=== PATIENT | female | born 1990 ===

== ENCOUNTER 2022-07-11 05:45 | Inpatient (IN) | payer MEDICAID ==
[2022-07-10 15:13] LABS: Hematocrit 35.9 % (30.3-42.9); Hemoglobin 11.9 gm/dl (10.1-14.3); Mean Corpuscular HGB Conc 33 % (30-34); Mean Corpuscular Volume 88 fl (79-97); Platelet Count 265 K/mm3 (140-440); Red Blood Count 4.08 M/mm3 (3.65-5.03); Red Cell Distribution Width 13.9 % (13.2-15.2)
--- NOTE | 2022-07-10 21:45 | History and Physical Report ---
History of Present Illness Date of examination: 07/10/22 History of present illness: Patient admitted for repeat section. Patient informed the risks of the surgery include bleeding possibly bleeding heavy enough to require blood transfusion, infection possible damage to bowel bladder ureter. Patient understands that due to her previous surgery she is an increased risks of adjacent organ damage. Patient's questions answered. Patient understands and desires to proceed. Menstrual History Regularity: irregular Menses every: 28 days Duration: 4 LMP: 08/28/2021 LMP reliability: unknown LMP character: normal test type: urine test Date: 01/30/2022 BC at conception: none Planned ? no Past History : 5 Term Births: 2 Premature Births: 0 Living Children: 2 Para: 2 Mult. Births: 0 Prev : 2 Aborta: 2 Elect. Ab: 0 Spont. Ab: 2 Ectopics: 0 # 1 Delivery date: Weeks Gestation: 41 labor: no Delivery type: Anesthesia type: epidural Infant Sex: Female Name: arcelia Comments: CS for arrest of dilatation # 2 Delivery date: 2016 Weeks Gestation: 40 labor: no Delivery type: Anesthesia type: epidural Sex: Male Comments: RCS # 3 Weeks Gestation: 8 Delivery type: SAB Comments: no medications or procedures # 4 Weeks Gestation: 8 Delivery type: SAB Comments: no medications or procedures Past Medical History: Negative Past Medical History Past Surgical History: 2016 Family History Summary: First Degree Blood Relative - Has No Known Family History - Entered On: 02/05/2022 Social History: Smoking History: Patient has never smoked. 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 % Family History Risk Factors: Family History of OH in 1 Female Relative Age < 65: no Family History of OH in 1 Male Relative Age < 55: no No Dietary Counseling Reason: pn yes Alcohol Use: no Drug Use: no Past Medical History Anesthesia Complications: negative Anemia: negative Autoimmune Disorder: negative Bleeding Disorder: negative Blood Transfusions: negative Breast Disease: negative Diabetes: negative Heart Disease: negative Hypertension: negative Hepatitis/Liver Disease: negative Kidney Disease/UTI: negative Neurologic/Epilepsy/Migraines: negative Phlebitis/Varicosities: negative Psychiatric: negative Pulmonary Disease/Asthma: negative Thyroid Disease: negative 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 Infection History Hx of STD: none HIV Risk Eval: no Hepatitis B Risk Eval: low risk Personal hx. of genital herpes: no Partner hx. of genital herpes: no Rash, Viral, or Febrile illness since last LMP? no Varicella/Chicken Pox Status: Previous Disease TB Risk: no Genetic History Congenital Heart Defect: Mom: no Dad: no Pinky Disease: Mom: no Dad: no Thalassemia Mom: no Dad: no Neural Tube Defect Mom: no Dad: no Down's Syndrome Mom: no Dad: no Umer-Sachs Mom: no Dad: no Sickle Cell Disease/Trait Mom: no Dad: no Hemophilia Mom: no Dad: no Muscular Dystrophy Mom: no Dad: no Cystic Fibrosis Mom: no Dad: no [place] Chorea Mom: no Dad: no Mental Retardation Mom: no Dad: no Fragile X Mom: no Dad: no Other Genetic/Chromosomal Disorder Mom: no Dad: no Child w/other defect Mom: no Dad: no Enviromental Exposures Enviromental Exposures Reviewed Xray Exposure: no Medication, drug, or alcohol use since LMP: no Chemical/Other Exposure: no Exposure to Cat Liter: no Hx of Parvovirus (Fifth Disease): no Occupational Exposure to Children: none Current Allergies (reviewed today): No known allergies Past History Past Medical History: other (SEE HPI) Past Surgical History: section, other (SEE HPI) EMS DRIVER History: other (SEE HPI) Family/Genetic History: other (SEE HPI) Social history: full code, other (SEE HPI) - Obstetrical History Expected Date of Delivery: 07/18/22 Actual Gestation: 39 Week(s) 0 Day(s) : 5 Para: 2 Hx # Term Pregnancies: 2 Number of Pregnancies: 0 Spontaneous Abortions: 2 Induced : 0 Number of Living Children: 2 Medications and Allergies Allergies Allergy/AdvReac Type Severity Reaction Status Date / Time morphine AdvReac Nausea Verified 07/04/22 17:09 Home Medications Medication Instructions Recorded Confirmed Last Taken Type No Known Home Medications [No 07/04/22 07/04/22 Unknown History Reported Home Medications] Review of Systems All systems: negative - Physical Exam Breasts: Positive: deferred Cardiovascular: Regular rate Lungs: Positive: Normal air movement Abdomen: Positive: normal appearance, soft, other (Obese) Genitourinary (Female): Positive: normal external genitalia Vulva: both: normal Vagina: Positive: normal moisture. Negative: discharge Cervix: Negative: lesion, discharge Extremities: Positive: edema - Obstetrical FHR: auscultation normal Uterine Contraction Monitor Mode: Palpation Uterine Contraction Pattern: Absent Uterine Tone Measurement Phase: Resting Results Result Diagrams: 07/10/22 15:00 All other labs normal. Assessment and Plan - Patient Problems (1) Previous delivery affecting , antepartum Current Visit: No Status: Acute Plan to address problem: Discuss the risks of the surgery including infection, bleeding possibly heavy enough to require a blood transfusion, possible damage to bowel, bladder or ureter. Her questions were answered. Patient understands her risks of adjacent organ damage is increased due to her previous surgery(ies) Patient understands and desires to proceed (2) BMI 45.0-49.9, adult Current Visit: No Status: Acute (3) Rubella non-immune status, antepartum Current Visit: No Status: Acute
[2022-07-11] MEDS ORDERED: METOCLOPRAMIDE 10 MG/2 ML INJ IV ONE (07:00)
[2022-07-11] MEDS ORDERED: BICITRA ORAL LIQD 30ML PO ONE (07:00)
[2022-07-11] MEDS ORDERED: FAMOTIDINE 20 MG/2 ML INJ IV ONE (07:00)
[2022-07-11] MEDS: LACTATED RINGERS 1,000 ML IV SCH ×2 (07:14→08:55)
[2022-07-11] MEDS ORDERED: ePHEDrine SULFATE 50 MG/1 ML INJ ONE (10:57)
[2022-07-11] MEDS ORDERED: ONDANSETRON 4 MG/2 ML INJ ONE (10:57)
[2022-07-11] MEDS ORDERED: PHENYLEPHRINE/NS 1,000 MCG/10 ML SYRINGE (OR USE) IV ONE (10:58)
[2022-07-11] MEDS ORDERED: SODIUM CHLORIDE 0.9% 100 ML ONE (10:58)
[2022-07-11] MEDS ORDERED: SODIUM CHLORIDE 0.9% IRR 1,500 ML BOTTLE IR ONE (11:28)
[2022-07-11] MEDS ORDERED: WATER FOR IRRIG STERILE 1,500 ML BOTTLE IR ONE (11:28)
--- NOTE | 2022-07-11 12:38 | Operative Report ---
Operative Report Operative Report: Date of procedure: July 11, 2022 Pre-operative diagnosis: Intrauterine at 39 weeks with previous section x2 and morbid obesity BMI of 48 Post-operative diagnosis: Same Procedure name(s): Repeat low-transverse section Surgeon: Panfilo Starkey MD Redevelopment Manager: SHER Anesthesia: Spinal EBL: Quantitative blood loss 960 cc Complications: None Findings: Patient with a normal uterus tubes and ovaries bilaterally male infant weight 7 pounds 12 ounces Apgars 8 at 1 minute and 9 at 5 minutes. Specimen(s): None Procedure: The patient was brought to the operating room. A spinal was placed without any complications. She was then placed in left lateral tilt. Prepped and draped in the usual sterile manner. Timeout was performed. After testing for adequate anesthesia level, a Pfannenstiel incision was made through her previous scar. This incision was taken down to the fascia through area thick adipose layer. The fascia was then nicked in the midline. This incision was extended out laterally with Barrientos scissors. The fascia was then sharply and bluntly from the underlying rectus muscles. The rectus muscles were bluntly and sharply . The peritoneum was then entered with the sponge press operator's fingers. This incision was spread vertically with care not to damage the bladder below. The bladder flap was then formed sharply and bluntly with Metzenbaum scissors. The Liborio self-retaining tractor was then placed without any difficulty. A transverse incision was made in lower uterine segment. This incision was extended laterally with the operators fingers. The amniotic sac was then entered bluntly with the sponge press operator's fingers. The infant was delivered from the vertex position. Bulb suction on the mother's abdomen. Cord was double clamped and cut. The was then passed to the nursery personnel who were in attendance. The above scores were given by the nursery personnel. The placenta was then bluntly removed. The uterus was then externalized and wiped clean the remaining products. The uterine incision was closed in layers. The first incision was closed in a locking manner using 0 Monocryl. This was followed by imbricating stitch also with 0 Vicryl. This closure was hemostatic. The bladder flap was copiously irrigated and found to be hemostatic. The pelvis was copiously irrigated and found to be hemostatic. The uterus was then placed back to the patient's abdomen. The retractors were removed. The rectus muscles were inspected and found to be hemostatic. The fascia was then closed in a running manner using 0 Vicryl. This incision was hemostatic irrigation Bovie. The adipose and space was closed in layers with 0 Monocryl the skin was reapproximated with 4-0 Vicryl subcuticularly. The patient tolerated procedure well. Her urine was clear. The was admitted to the [facility] baby nursery. The patient was accompanied to recovery room in good condition. Instrument count correct x3
[2022-07-11] MEDS ORDERED: NALOXONE 0.4 MG/1 ML INJ IV PRN ×2 (13:10→14:33)
[2022-07-11] MEDS ORDERED: PROMETHAZINE 25 MG RECT SUPP PR PRN (13:10)
[2022-07-11] MEDS ORDERED: HYDROmorphone 1 MG/1 ML INJ IV PRN ×2 (13:10)
[2022-07-11] MEDS ORDERED: MORPHINE 4 MG/1 ML INJ IV PRN (13:10)
[2022-07-11] MEDS ORDERED: PROMETHAZINE 25 MG TAB PO PRN (13:10)
[2022-07-11] MEDS ORDERED: ONDANSETRON 4 MG/2 ML INJ IV PRN ×2 (13:10→14:33)
--- NOTE | 2022-07-11 13:11 | Anesthesia Day of Surgery ---
Anesthesia Day of Surgery - Day of Surgery Patient Examined: Yes Patient H&P Reviewed: Yes Patient is NPO: Yes Beta Blockers: No Cardiac Clearance: No Pulmonary Clearance: No Kd's Test: N/A
--- NOTE | 2022-07-11 13:11 | Anesthesia Consultation ---
Anesthesia Consult and Med Hx Date of service: 07/11/22 - Airway Anesthetic Teeth Evaluation: Good ROM Head & Neck: Adequate Mental/Hyoid Distance: Adequate Mallampati Class: Class II Intubation Access Assessment: Probably Good - Pulmonary Exam CTA: Yes - Cardiac Exam Cardiac Exam: RRR - Pre-Operative Health Status ASA Pre-Surgery Classification: ASA3 Proposed Anesthetic Plan: Spinal Nerve Block: Jeramie Tap - Pulmonary Hx Smoking: No Hx Asthma: No Hx Respiratory Symptoms: No SOB: No COPD: No Home Oxygen Therapy: No Hx Pneumonia: No Hx Sleep Apnea: No - Cardiovascular System Hx Hypertension: No Hx Coronary Artery Disease: No Hx Heart Attack/AMI: No Hx Angina: No Hx Percutaneous Transluminal Coronary Angioplasty (PTCA): No Hx Cardia Arrhythmia: No Hx Pacemaker: No Hx Internal Defibrillator: No Hx Valvular Heart Disease: No Hx Heart Murmur: No Hx Peripheral Vascular Disease: No - Central Nervous System Hx Neuromuscular Disorder: No Hx Seizures: No CVA: No Hx Back Pain: No Hx Psychiatric Problems: No - Gastrointestinal Hx Ulcer: Yes (ABDOMEN) Hx Gastroesophageal Reflux Disease: No - Endocrine Hx Renal Disease: No Hx End Stage Renal Disease: No Hx Cirrhosis: No Hx Liver Disease: No Hx Insulin Dependent Diabetes: No Hx Non-Insulin Dependent Diabetes: No Hx Thyroid Disease: No Hx Hypothyroidism: No Hx Hyperthyroidism: No - Hematic Hx Anemia: No Hx Sickle Cell Disease: No - Other Systems Hx Alcohol Use: No Hx Substance Use: No Hx Cancer: No Hx Obesity: Yes
--- NOTE | 2022-07-11 13:12 | Progress Note ---
Spinal Anesthesia Block - Spinal Anesthesia Block Start Time: 11:11 Stop Time: 11:16 Performed by:: TANISHA ALEXANDRE Procedure: The patient was placed in a sitting position on the OR table and monitors applied. A timeout was performed immediately prior to the start of the procedure. The patient was Prepped and draped in a sterile fashion and the skin was localized with 3 mL 1% lidocaine at L[4]-L[5] interspace. An introducer was placed into the back between L4-L5 and a 25g spinal needle was advanced into the intrathecal space until clear, free flowing CSF was observed. 1.8cc of 0.75% hyperbaric bupivacaine + 0.5mcg Precedex was injected into the intrathecal space and the spinal needle was removed. The patient tolerated the procedure well and there were no immediate complications noted.
--- NOTE | 2022-07-11 13:13 | Progress Note ---
Regional Anesthesia Block - Regional Anesthesia Block Start Time: 12:55 Stop Time: 13:00 Performed By:: TANISHA ALEXANDRE Procedure: During the pre-op interview the patient agreed to and signed a consent for a TAP block for post surgical pain management. After her C/S was completed a time out was performed prior to the start of the procedure. The Trans Abdominal Plane was identified bilaterally via ultrasound. The skin was prepped bilaterally with chlorhexidine and a 22g stimuplex needle was advanced to the area between the internal oblique muscle and the trans abdominal plane. Marcaine 0.25% 30mlwas injected under ultrasound guidance on the left and right side. Negative aspiration every 5mL, There was no change in the patients heart rate or rhythm and the patient tolerated the procedure well. No apparent complications were observed.
[2022-07-11] MEDS ORDERED: fentaNYL-BUPIV 2 MCG/ML-0.125% 200 MCG/100 ML BAG EPIDURAL SCH (14:00)
[2022-07-11] MEDS ORDERED: MAGNESIUM HYDROXIDE (MOM) ORAL LIQD UDC PO PRN (14:33)
[2022-07-11] MEDS ORDERED: WITCH HAZEL/ GLYCERIN PAD TP PRN (14:33)
[2022-07-11] MEDS ORDERED: LANOLIN/ZINC/DIMETHICONE (LANSINOH) 7 GM TP PRN (14:33)
[2022-07-11] MEDS ORDERED: SENNOSIDES 8.6 MG TAB PO PRN (14:33)
[2022-07-11] MEDS ORDERED: ACETAMINOPHEN 325 MG TAB PO PRN (14:33)
[2022-07-11] MEDS ORDERED: OXYTOCIN DRIP 30 UNITS/500 ML BAG IV SCH (14:33)
[2022-07-11] MEDS: ceFAZolin/NS 1 GM/50 ML 1 GM/50 ML BAG IV SCH ×2 (15:37→23:30)
[2022-07-11] MEDS: KETOROLAC 30 MG/1 ML INJ IV SCH ×2 (15:37→21:26)
[2022-07-11] MEDS: D5W/LACTATED RINGERS 1,000 ML IV SCH (18:03)
[2022-07-12] MEDS: KETOROLAC 30 MG/1 ML INJ IV SCH ×2 (02:33→08:03)
[2022-07-12] MEDS: D5W/LACTATED RINGERS 1,000 ML IV SCH (02:35)
[2022-07-12 02:41] LABS: Hematocrit 28.1 % (30.3-42.9); Hemoglobin 9.4 gm/dl (10.1-14.3)
[2022-07-12] MEDS: HYDROcodone/ACETAMINOPHEN 5-325 MG TAB PO PRN ×2 (05:29→14:35)
[2022-07-12] MEDS ORDERED: TETANUS,DIPH,PERTUSS(ACELL) VACCINE 0.5 ML SYRINGE IM ONE (06:00)
--- NOTE | 2022-07-12 08:05 | Progress Note ---
Assessment and Plan - Patient Problems (1) delivery delivered Current Visit: Yes Status: Acute Plan to address problem: Continue pathway Pain management Encourage ambulation (2) Anemia associated with acute blood loss Current Visit: Yes Status: Acute Plan to address problem: Post-op H/H 9.4/28.1 Repeat H/H ordered Asymptomatic Subjective - Subjective Date of service: 07/12/22 Principal diagnosis: POD #1 Patient reports: appetite normal, voiding normally, flatus, pain poorly controlled, ambulating normally : doing well, nursing well Objective - Vital Signs Latest vital signs: Vital Signs Temp Pulse Resp BP BP Pulse Ox Pulse Ox 07/12/22 05:29 20 07/12/22 04:55 97.3 F L 65 18 118/66 99 07/12/22 02:33 20 07/12/22 01:15 97.6 F 74 18 110/54 97 07/11/22 21:26 20 07/11/22 20:30 98 F 68 18 115/59 97 07/11/22 19:50 98 07/11/22 14:30 97.6 F 67 18 112/54 100 100 07/11/22 13:50 97.6 F 65 18 98/39 99 07/11/22 13:45 70 18 102/35 99 07/11/22 13:30 68 17 84/33 98 07/11/22 13:15 72 18 100/40 98 07/11/22 13:00 73 14 112/54 100 07/11/22 12:55 62 14 96/57 100 07/11/22 12:50 62 14 94/52 98 07/11/22 12:47 97.5 F L 72 15 97/47 98 07/11/22 10:55 76 98 07/11/22 10:50 84 98 07/11/22 10:45 85 98 07/11/22 10:40 88 98 07/11/22 10:35 102 H 99 07/11/22 10:30 57 L 80 L 07/11/22 10:29 87 96 07/11/22 10:24 68 96 07/11/22 10:19 73 96 07/11/22 10:14 67 97 07/11/22 10:09 69 97 07/11/22 10:04 81 97 07/11/22 09:59 79 97 07/11/22 09:54 68 98 07/11/22 09:49 71 98 07/11/22 09:44 68 97 07/11/22 09:39 84 97 07/11/22 09:34 75 97 07/11/22 09:29 92 H 97 07/11/22 09:24 91 H 97 07/11/22 09:19 89 97 07/11/22 09:14 88 97 07/11/22 09:09 81 97 07/11/22 09:04 83 96 07/11/22 08:59 99 H 98 07/11/22 08:54 89 97 07/11/22 08:49 90 97 07/11/22 08:39 93 H 97 07/11/22 08:34 81 97 07/11/22 08:29 89 96 07/11/22 08:28 65 93 07/11/22 08:24 80 95 07/11/22 08:22 81 94 07/11/22 08:19 92 H 95 07/11/22 08:14 74 95 07/11/22 08:09 73 96 07/11/22 08:04 78 96 Intake and Output 07/11/22 07/12/22 07/12/22 23:59 07:59 15:59 Intake Total 290 1240 Output Total 1400 Balance -1110 1240 Intake: IV 50 1000 ANCEF/NS 1 GM/50 ML 1 gm 50 In 50 ml @ 100 mls/hr IV Q8H [facility] Rx#:[id number] 1,000 ml @ 125 mls/ 1000 hr IV DIRECT [facility] Rx#: [id number] Intake, Free Water 240 240 Output: Urine 1400 Indwelling Catheter 1400 Other: Total, Output Amount 900 # Voids Void 0 1 - Exam Narrative Exam: pt resting in bed. Fundus firm, lochia minmal. Reports lower abdominal pain 07/04. Post-op pain expectations reviewed. Breasts: Present: normal Cardiovascular: Present: Regular rate Lungs: Present: Normal air movement Abdomen: Present: normal appearance Uterus: Present: firm Extremities: Present: normal Incision: Present: normal, dry, intact Comments: Clean, dry, intact, no drainage noted - Labs Labs: Abnormal lab results 07/12/22 Range/Units 02:12 Hgb 9.4 L (10.1-14.3) gm/dl Hct 28.1 L D (30.3-42.9) %
--- NOTE | 2022-07-12 08:20 | Post Anesthesia Evaluation ---
- Post Anesthesia Evaluation Patient Participated: Yes Airway Patent: Yes Stable Respiratory Function: Yes Nausea/Vomiting: No Temp > 96.8F: Yes Pain Manageable: Yes Adequeate Hydration: Yes Anesthesia Complications: No Block Receding Appropriately: Yes Patient on Ventilator: No
[2022-07-12 09:09] LABS: Hematocrit 32.1 % (30.3-42.9); Hemoglobin 10.6 gm/dl (10.1-14.3)
[2022-07-12] MEDS: FERROUS SULFATE 325 MG TAB PO SCH (10:30)
[2022-07-12] MEDS: PRENATAL VIT27-FE FUMARATE-FOLIC ACID VIT TAB PO SCH (10:30)
[2022-07-12] MEDS ORDERED: MEASLES, MUMPS & RUBELLA 12,500 UNIT/0.5 ML VACCINE SUB-Q ONE (12:44)
[2022-07-12] MEDS: IBUPROFEN 600 MG TAB PO PRN (16:26)
[2022-07-13] MEDS: HYDROcodone/ACETAMINOPHEN 5-325 MG TAB PO PRN ×2 (02:00→16:05)
--- NOTE | 2022-07-13 06:37 | Discharge Summary ---
Providers - Providers Date of Admission: 07/11/22 11:47 Date of discharge: 07/13/22 Attending physician: MARITZA JONES 07/11/22 14:33 Consult to Residential Carpenter [CONS] Routine Reason For Exam: Primary care physician: MARITZA JONES Hospitalization Condition: Good Disposition: 01 HOME / SELF CARE / HOMELESS Final Discharge Diagnosis (Prints w/discharge instructions): s/p - Discharge Diagnoses (1) delivery delivered Status: Acute (2) Anemia associated with acute blood loss Status: Acute Core Measure Documentation - Palliative Care Palliative Care/ Comfort Measures: Not Applicable - Core Measures Any of the following diagnoses?: none Exam - Physical Exam Narrative exam: pt resting in bed. Fundus firm, lochia minimal. Reports better pain control. Incision open to air, intact surgical glue noted, no s/sx of infection. No drainage noted. Discussed discharge today. In good stable condition. Reviewed incision care and signs of infection. F/u in 1 week for incision check. PT would like and IUD for BC. Declines circumcision for son. - Constitutional Vitals: Temp Pulse Resp BP Pulse Ox 98.2 F 68 18 124/72 97 07/13/22 01:10 07/13/22 01:10 07/13/22 03:00 07/13/22 01:10 07/13/22 01:10 General appearance: Present: no acute distress, well-nourished - EENT Eyes: Present: PERRL ENT: hearing intact, clear oral mucosa - Neck Neck: Present: supple, normal ROM - Respiratory Respiratory effort: normal Respiratory: bilateral: CTA - Cardiovascular Rhythm: regular Heart Sounds: Absent: rub, click - Extremities Extremities: pulses symmetrical, No edema Peripheral Pulses: within normal limits - Abdominal General gastrointestinal: Present: soft, non-distended, normal bowel sounds Female genitourinary: Present: normal - Rectal Rectal Exam: deferred - Integumentary Integumentary: Present: clear, warm, dry - Musculoskeletal Musculoskeletal: gait normal, strength equal bilaterally - Psychiatric Psychiatric: appropriate mood/affect, intact judgment & insight - Neurologic Neurologic: moves all extremities Plan Activity: no restrictions, advance as tolerated Weight Bearing Status: Non-Weight Bearing Diet: regular Wound: open to air, keep clean and dry, other (surgical noted, no s/sx of infection, no drainage present) Care Plan Goals: [] Smoking cessation referral if applicable(refer to patient education folder for contact #) [] Refer to [facility] Booklet Call your doctor immediately for: * Fever > 100.5 * Heavy vaginal bleeding ( >1 pad per hour) * Severe persistent headache * Shortness of breath * Reddened, hot, painful area to leg or breast * Drainage or odor from incision. * Keep incision clean and dry at all times and follow doctor's instructions regarding bathing/showering Follow up with: MARITZA JONES MD [Primary Care Provider] - 7 Days (Congratulations! Please call us at [phone] to schedule an incision check in 1 week. Call if you have any questions or concerns after discharge.) Forms: [facility] Discharge Summary Prescriptions: Lidocain2.5%/Prilocai2.5% [Emla] 5 gm TP ONCE #1 tube Ibuprofen [Motrin] 800 mg PO TID PRN #30 tablet PRN Reason: Pain oxyCODONE /ACETAMINOPHEN [Percocet 5/325 mg] 1 tab PO Q6HR PRN #20 tablet PRN Reason: Pain
[2022-07-13] MEDS: IBUPROFEN 600 MG TAB PO PRN (10:15)
[2022-07-13] MEDS: PRENATAL VIT27-FE FUMARATE-FOLIC ACID VIT TAB PO SCH (10:16)
[2022-07-13] MEDS: FERROUS SULFATE 325 MG TAB PO SCH (10:16)
[2022-07-13 15:50] VITALS: BP 124/68
== END 2022-07-13 18:15 | disposition home or self-care (01) | DRG 765 ==
LOC: APU 06:37 → UNDOADMIN 06:37 → EDSTATUS 07:30 → APU 11:14 → OB 14:15
PROVIDERS: ADMIT Obstetrics & Gynecology; ATTEND Obstetrics & Gynecology
PROC: 10D00Z1 Extraction of Products of Conception, Low, Open Approach (ICD-10-PCS; principal; 2022-07-11)
PROC: 3E0T3BZ Introduction of Anesthetic Agent into Peripheral Nerves and Plexi, Percutaneous Approach (ICD-10-PCS; 2022-07-11)
PROC: 3E0234Z Introduction of Serum, Toxoid and Vaccine into Muscle, Percutaneous Approach (ICD-10-PCS; 2022-07-12)
PROC: 3E0134Z Introduction of Serum, Toxoid and Vaccine into Subcutaneous Tissue, Percutaneous Approach (ICD-10-PCS; 2022-07-12)
DX: O34.211 Maternal care for low transverse scar from previous cesarean delivery (principal); D62 Acute posthemorrhagic anemia; Z37.0 Single live birth; Z3A.39 39 weeks gestation of pregnancy; O99.214 Obesity complicating childbirth; E66.01 Morbid (severe) obesity due to excess calories; O90.81 Anemia of the puerperium; Z23 Encounter for immunization; Z88.5 Allergy status to narcotic agent
CPT/HCPCS: 36415; 85014; 85018; 85027; 86592; 86850; 86900; 86901; G0378; J3490; J7060; J7121; C1765; J0690; J1170; J1885; J2310; J2370; J2405; J2765; J7120; U0003